=== PATIENT | female | born 1975 | race Caucasian/White ===

== ENCOUNTER 2016-04-24 10:47 | Emergency (ER) | payer OTHER ==
--- NOTE | 2016-04-24 15:25 | DIAGNOSTIC IMAGING REPORT ---
PROCEDURE: CT ABDOMEN/PELVIS W/O CONTRAST INDICATION: Left flank pain. History of kidney stones. Prior appendectomy, cholecystectomy, and hysterectomy. TECHNIQUE: Noncontrast axial images with sagittal and coronal reformations. COMPARISON: None. FINDINGS: ABDOMEN: Kidneys and ureters are normal. No evidence of urinary tract calculus or obstruction. Status post cholecystectomy and anatomy (surgical clips and mesh). Liver, spleen, pancreas, and aorta are normal. Bowel pattern is normal. PELVIS: Status post hysterectomy. Adnexal structures are normal. No evidence of free fluid. IMPRESSION: 1. Normal kidneys and ureters. No evidence of urinary tract obstruction or calculus. 2. Status post cholecystectomy, hysterectomy, appendectomy. 3. Findings discussed with Dr. Leroy Ray. All CT scans at this facility use dose modulation, iterative reconstruction, and/or weight-based dosing when appropriate to reduce radiation dose to as low as reasonably achievable.
--- NOTE | 2016-04-24 15:36 | ED ORDER SUMMARY ---
..... Patient: LIAN ROBERTO OrderSheet [facility] VisitID: [id number] [place] [address] 40y, F Registration Date/Time: 04/24/2016 ORDER SHEET Weight: 93.4 kg (stated) Allergies: No Known Drug Allergy GENERAL ORDERS: UA-Culture if indicated Urgent (10:58 04/24/2016 HOShaflavia R.N. per protocol) (Ack 11:12 LTapper) (12:07 LTapper) Urine Urgent (10:58 04/24/2016 HOShaflavia R.N. per protocol) (Ack 11:12 LTapper) (12:07 LTapper) CT Abd/Pel wo Cont Urgent (13:20 04/24/2016 Ira Liz) (Ack 13:34 LTapper) (15:47 HOShaflavia R.N.) MEDICATION ORDERS: Zofran ODT PO 4 mg (NOW) (11:50 04/24/2016 Ira Liz) (Ack 11:54 MWinterer R.N.) (11:55 MWinterer R.N.) IV FLUIDS: ORDER SHEET NOTES: [Electronically signed by Dat Rivera R.N. (15:47 04/24/2016)] [Electronically signed by Leroy Ray Dr. (22:19 04/24/2016)] [Electronically locked/signed by Dat Rivera R.N. (15:47 04/24/2016)]
--- NOTE | 2016-04-24 15:36 | ED ORDER SUMMARY ---
..... Patient: LIAN ROBERTO OrderSheet [facility] VisitID: [id number] [place] [address] 40y, F Registration Date/Time: 04/24/2016 ORDER SHEET Weight: 93.4 kg (stated) Allergies: No Known Drug Allergy GENERAL ORDERS: UA-Culture if indicated Urgent (10:58 04/24/2016 HOShaflavia R.N. per protocol) (Ack 11:12 LTapper) (12:07 LTapper) Urine Urgent (10:58 04/24/2016 HOShaflavia R.N. per protocol) (Ack 11:12 LTapper) (12:07 LTapper) CT Abd/Pel wo Cont Urgent (13:20 04/24/2016 Ira Liz) (Ack 13:34 LTapper) (15:47 HOShaflavia R.N.) MEDICATION ORDERS: Zofran ODT PO 4 mg (NOW) (11:50 04/24/2016 Ira Liz) (Ack 11:54 MWinterer R.N.) (11:55 MWinterer R.N.) IV FLUIDS: ORDER SHEET NOTES: [Electronically signed by Dat Rivera R.N. (15:47 04/24/2016)] [Electronically signed by Leroy Ray Dr. (22:19 04/24/2016)] [Electronically locked/signed by Dat Rivera R.N. (15:47 04/24/2016)]
--- NOTE | 2016-04-24 15:36 | ED CLINICAL REPORT ---
Clinical Report - Physicians/Mid Levels [facility] [address] [place] [address] 04/24/2016 10:50 Patient: LIAN ROBERTO Time Seen: 11:08; initial patient contact. Arrived- By private vehicle. Historian- patient. HISTORY OF PRESENT ILLNESS Chief Complaint: FLANK PAIN. At its maximum, severity described as moderate. When seen in the E.D., severity described as moderate. Modifying factors. Not worsened by anything. Not relieved by anything. It is described as sharp and cramping and it is described as located in the pelvic area and in the left pelvis and left side of the back and radiating to the left groin. This started yesterday and is still present. It was gradual in onset. No nausea, loss of appetite, vomiting or diarrhea. Similar symptoms previously: Several times. Recent medical care: Not recently seen/assessed. REVIEW OF SYSTEMS No constipation, difficulty with urination, pain with urination, urinary frequency or fever. No chills. All systems otherwise negative, except as recorded above. PAST HISTORY Nephrolithiasis. Kidney Infection. UTI - Urinary Tract Infection. Lupus. ADDITIONAL SURGERIES: Appendectomy. Cholecystectomy. Hysterectomy. Lumpectomy of breast. SOCIAL HISTORY Never smoker. No alcohol use or drug use. ADDITIONAL NOTES The nursing notes have been reviewed with agreement regarding the chief complaint, PMH and patient medications and allergies. PHYSICAL EXAM Vital Signs: 04/24/2016 11:03 BP: 129/81. HR: 75. RR: 16. O2 saturation: 98%. Temp: 98.1 F. Pain level now: 6/10. Have been reviewed as normal. Appearance: Alert. Oriented X3. No acute distress. Eyes: Eyes normal inspection. ENT: Pharynx normal. CVS: Normal heart rate and rhythm. Heart sounds normal. Respiratory: No respiratory distress. Breath sounds normal. Abdomen: Soft. Mild tenderness in the left side of the abdomen. No guarding or rebound tenderness. Bowel sounds normal. No organomegaly. No mass. Back: Mild tenderness in the left mid and lower lumbar area. Mild muscle spasm in the left mid and lower lumbar spine region. No CVA tenderness. Skin: Skin warm and dry. Normal skin color. No rash. Neuro: Oriented X 3. No motor deficit. No sensory deficit. LABS, X-RAYS, AND EKG CT Abdomen - Pelvis: 1. Normal kidneys and ureters. No evidence of urinary tract obstruction or calculus. 2. Status post cholecystectomy, hysterectomy, appendectomy. Abdomen - pelvic CT performed without contrast. Prior studies were not available for comparison. The study was interpreted by the radiologist and discussed with the radiologist. Interpretation time: 15:30. Laboratory Tests: UA-Culture if indicated: (ANNE MARIE: 04/24/2016 10:58) ( MsgRcvd 04/24/2016 11:19) Final results Test Result Flag Units (Reference) URINE COLOR YELLOW URINE APPEARANCE CLEAR URINE GLUCOSE NEGATIVE (NEGATIVE) URINE BILIRUBIN NEGATIVE (NEGATIVE) URINE KETONE NEGATIVE (NEGATIVE) URINE SPECIFIC GRAVITY 1.015 (1.010-1.030) URINE PH 7.0 (5.0-8.0) URINE PROTEIN NEGATIVE (NEGATIVE) URINE UROBILINOGEN 0.2 EU/dL (0.2-1.0) URINE NITRITE NEGATIVE (NEGATIVE) URINE BLOOD NEGATIVE (NEGATIVE) URINE LEUK ESTERASE NEGATIVE (NEGATIVE) URINE RBC RARE rbc/hpf (0-1) URINE WBC RARE wbc/hpf (0-1) URINE EPITHELIAL CELLS 10-15 EPI/hpf (0-5) URINE BACTERIA TRACE (<1+) (NONE SEEN) URINE COMMENT CULT NOT INDICATED URINE CULTURES ARE SET-UP BASED ON THE FOLLOWING CRITERIA:POSITIVE NITRITEPOSITIVE LEUKOCYTE ESTERASEGREATER THAN 10 WHITE BLOOD CELLSMODERATE (2+) OR GREATER BACTERIA Urine: (ANNE MARIE: 04/24/2016 10:58) ( MsgRcvd 04/24/2016 11:11) Final results Test Result Flag Units (Reference) URINE NEGATIVE . PROGRESS AND PROCEDURES Disposition: Discharged home in good and improved condition. Condition: good. CLINICAL IMPRESSION Acute left lower quadrant abdominal pain of undetermined cause. 04/24/2016 13:02 BP: 117/77. HR: 84. RR: 16. O2 saturation: 98%. Vital Signs: have been reviewed as normal. INSTRUCTIONS Your Current Medications: CONTINUE TAKING THE FOLLOWING MEDICATIONS: Hydrocortisone External. Prescription Medications: Hydrocodone/APAP 5mg / 325mg: take 1 orally every 6 hours as needed for pain. Dispense fifteen (15). No refill. Zofran ODT 4 mg: take 1 orally every 6 hours as needed for nausea and vomiting. Dispense ten (10). No refill. Substitution is permissible. Follow-up: Follow up with your doctor in about two days. Call for an appointment. Screening today revealed the patient's blood pressure to be in the normal range. (Electronically signed by Leroy Ray Dr. 04/24/2016 22:19)
--- NOTE | 2016-04-24 15:36 | ED NURSING NOTES ---
Clinical Report - Nurses [facility] [place] [address] 04/24/2016 10:50 Patient: LIAN ROBERTO TRIAGE Triage time 1103 AM. Acuity: LEVEL 4. Chief Complaint: PAINFUL URINATION and LOW BACK PAIN and LEFT-SIDED FLANK PAIN. Alert. No acute distress. --11:08 Dat Rivera R.N. 11:03 04/24/16. BP: 129/81. HR: 75. RR: 16. O2 saturation: 98%. Temp: 98.1 F. Pain level now: 09/30. --11:08 Dat Rivera R.N. Weight: 93.4 kg stated. Height/Length: 64 inches Per Patient. BMI: 35.4. --11:03 Dat Rivera R.N. Medications Hydrocortisone External. --11:06 Dat Rivera R.N. Allergies No Known Drug Allergy. --11:06 Dat Rivera R.N. History Arrived by private vehicle. Historian: patient. Accompanied by family. This started yesterday. ( Patient presents to the ED with symptoms of left flank pain, urinary frequency, and pain with urination. Patient states that she has a history of kidney stones and urinary tract infections. Patient states that she has had fevers lately, but was recently diagnosed with lupus and has not felt sick lately.). She has had fever, hematuria and flank pain. 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 PAST MEDICAL HX: Denies current : hysterectomy. SOCIAL HX: Never smoker. Alcohol use. (never). History of drug use. (never). FALL RISK ASSESSMENT: Fall risk assessment completed. No fall risk identified. NUTRITIONAL RISK ASSESSMENT: The nutritional risk assessment revealed no deficiencies. FUNCTIONAL ASSESSMENT: Functional assessment: no impairments noted. LEARNING NEEDS ASSESSMENT: The learning needs assessment revealed no barriers. SKIN INTEGRITY ASSESSMENT: Skin integrity risk assessment completed. No skin integrity risk identified. --11:08 Dat Rivera R.N. PROBLEMS: Nephrolithiasis. Kidney Infection. UTI - Urinary Tract Infection. Lupus. --11:07 Dat Rivera R.N. ADDITIONAL SURGERIES: Appendectomy. Cholecystectomy. Hysterectomy. Lumpectomy of breast. --11:07 Dat Rivera R.N. Interventions ID band on patient. --11:08 Dat Rivera R.N. PHYSICAL ASSESSMENT Ambulatory to room. GENERAL / NEURO / PSYCH: Alert. Oriented X 4. Appears in no acute distress. HEENT: Mucous membranes are pink. RESPIRATORY: Respirations not labored. Breath sounds within normal limits. CVS: Normal heart rate and rhythm. Capillary refill less than 2 seconds. GI / : Abdomen soft and nontender. Bowel sounds within normal limits. Pain with urination. She has had frequency of urination. Urgency of urination. CVA tenderness on the left (radiates to the front). No vaginal bleeding. No vaginal discharge. No genital lesions noted. SKIN: Skin is warm and dry. --11:09 Dat Rivera R.N. NURSING PROGRESS NOTES The initial plan of care for this patient includes an assessment with efforts to address impairment of the genitourinary system. This plan of care was discussed with the patient. Call light placed in reach. Side rails up x 1. Bed placed in lowest position. Brakes of bed on. --11:09 Dat Rivera R.N. 11:55 04/24/2016 Zofran ODT (Ondansetron) PO 4 mg given. Allergies verified and confirmed 5 rights. --11:55 Lian Quesada R.N. Call light placed in reach. Patient ready for evaluation- chart flagged and ED physician notified. --13:02 Dat Rivera R.N. 13:02 04/24/16. BP: 117/77. HR: 84. RR: 16. O2 saturation: 98%. Pain level now 6/10. --13:02 Dat Rivera R.N. Patient waiting for evaluation and CT results. --13:21 Dat Rivera R.N. Patient transported to CT by stretcher with tech. (1255 PM). --13:32 Dat Rievra R.N. Patient returned by stretcher with tech. ([id number]). --13:41 Dat Rivera R.N. DISPOSITION / DISCHARGE Condition at departure: unchanged. The goals identified in the patient's plan of care were met. No learning barriers present. Discharge instructions provided and reviewed with the patient. Reviewed medication(s) side effects, precautions, dosing and course information. Prescription(s) given to the patient. Reviewed referral to a primary care physician. Patient verbalized understanding. Written instructions provided in [place]. The patient was discharged home and accompanied by spouse. She left the Emergency Department ambulatory and via private vehicle. Spouse driving. FALL RISK ASSESSMENT: Fall risk assessment completed. No fall risk identified. --15:46 Dat Rivera R.N. 15:45 04/24/16. BP: 111/71. HR: 58. RR: 18. O2 saturation: 99%. Temp: 98.2 F (oral). Pain level now: 07/31. --15:46 Dat Rivera R.N. Departure time: 1546 PM. --15:46 Dat Rivera R.N. Locked/Released at 04/24/2016 15:47 by Dat Rivera R.N.
--- NOTE | 2016-04-24 15:36 | ED NURSING NOTES ---
Clinical Report - Nurses [facility] [place] [address] 04/24/2016 10:50 Patient: LIAN ROBERTO TRIAGE Triage time 1103 AM. Acuity: LEVEL 4. Chief Complaint: PAINFUL URINATION and LOW BACK PAIN and LEFT-SIDED FLANK PAIN. Alert. No acute distress. --11:08 Dat Rivera R.N. 11:03 04/24/16. BP: 129/81. HR: 75. RR: 16. O2 saturation: 98%. Temp: 98.1 F. Pain level now: 09/30. --11:08 Dat Rivera R.N. Weight: 93.4 kg stated. Height/Length: 64 inches Per Patient. BMI: 35.4. --11:03 Dat Rivera R.N. Medications Hydrocortisone External. --11:06 Dat Rivera R.N. Allergies No Known Drug Allergy. --11:06 Dat Rivera R.N. History Arrived by private vehicle. Historian: patient. Accompanied by family. This started yesterday. ( Patient presents to the ED with symptoms of left flank pain, urinary frequency, and pain with urination. Patient states that she has a history of kidney stones and urinary tract infections. Patient states that she has had fevers lately, but was recently diagnosed with lupus and has not felt sick lately.). She has had fever, hematuria and flank pain. 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 PAST MEDICAL HX: Denies current : hysterectomy. SOCIAL HX: Never smoker. Alcohol use. (never). History of drug use. (never). FALL RISK ASSESSMENT: Fall risk assessment completed. No fall risk identified. NUTRITIONAL RISK ASSESSMENT: The nutritional risk assessment revealed no deficiencies. FUNCTIONAL ASSESSMENT: Functional assessment: no impairments noted. LEARNING NEEDS ASSESSMENT: The learning needs assessment revealed no barriers. SKIN INTEGRITY ASSESSMENT: Skin integrity risk assessment completed. No skin integrity risk identified. --11:08 Dat Rivera R.N. PROBLEMS: Nephrolithiasis. Kidney Infection. UTI - Urinary Tract Infection. Lupus. --11:07 Dat Rivera R.N. ADDITIONAL SURGERIES: Appendectomy. Cholecystectomy. Hysterectomy. Lumpectomy of breast. --11:07 Dat Rivera R.N. Interventions ID band on patient. --11:08 Dat Rivera R.N. PHYSICAL ASSESSMENT Ambulatory to room. GENERAL / NEURO / PSYCH: Alert. Oriented X 4. Appears in no acute distress. HEENT: Mucous membranes are pink. RESPIRATORY: Respirations not labored. Breath sounds within normal limits. CVS: Normal heart rate and rhythm. Capillary refill less than 2 seconds. GI / : Abdomen soft and nontender. Bowel sounds within normal limits. Pain with urination. She has had frequency of urination. Urgency of urination. CVA tenderness on the left (radiates to the front). No vaginal bleeding. No vaginal discharge. No genital lesions noted. SKIN: Skin is warm and dry. --11:09 Dat Rivera R.N. NURSING PROGRESS NOTES The initial plan of care for this patient includes an assessment with efforts to address impairment of the genitourinary system. This plan of care was discussed with the patient. Call light placed in reach. Side rails up x 1. Bed placed in lowest position. Brakes of bed on. --11:09 Dat Rivera R.N. 11:55 04/24/2016 Zofran ODT (Ondansetron) PO 4 mg given. Allergies verified and confirmed 5 rights. --11:55 Lian Quesada R.N. Call light placed in reach. Patient ready for evaluation- chart flagged and ED physician notified. --13:02 Dat Rivera R.N. 13:02 04/24/16. BP: 117/77. HR: 84. RR: 16. O2 saturation: 98%. Pain level now 6/10. --13:02 Dat Rivera R.N. Patient waiting for evaluation and CT results. --13:21 Dat Rivera R.N. Patient transported to CT by stretcher with tech. (1255 PM). --13:32 Dat Rivera R.N. Patient returned by stretcher with tech. ([id number]). --13:41 Dat Rivera R.N. DISPOSITION / DISCHARGE Condition at departure: unchanged. The goals identified in the patient's plan of care were met. No learning barriers present. Discharge instructions provided and reviewed with the patient. Reviewed medication(s) side effects, precautions, dosing and course information. Prescription(s) given to the patient. Reviewed referral to a primary care physician. Patient verbalized understanding. Written instructions provided in Bhutanese. The patient was discharged home and accompanied by spouse. She left the Emergency Department ambulatory and via private vehicle. Spouse driving. FALL RISK ASSESSMENT: Fall risk assessment completed. No fall risk identified. --15:46 Dat Rivera R.N. 15:45 04/24/16. BP: 111/71. HR: 58. RR: 18. O2 saturation: 99%. Temp: 98.2 F (oral). Pain level now: 07/31. --15:46 Dat Rivera R.N. Departure time: 1546 PM. --15:46 Dat Rivera R.N. Locked/Released at 04/24/2016 15:47 by Dat Rivera R.N.
--- NOTE | 2016-04-24 22:20 | ED DISCHARGE INSTRUCTIONS ---
Patient: LIAN ROBERTO General Instructions Located Within [facility] VisitID: [id number] [place] [address] 40y, F Registration Date/Time: 04/24/2016 Acute left lower quadrant abdominal pain of undetermined cause. 04/24/2016 13:02 BP: 117/77. HR: 84. RR: 16. O2 saturation: 98%. Vital Signs: have been reviewed as normal. INSTRUCTIONS Your Current Medications: CONTINUE TAKING THE FOLLOWING MEDICATIONS: Hydrocortisone External. Prescription Medications: Hydrocodone/APAP 5mg / 325mg: take 1 orally every 6 hours as needed for pain. Dispense fifteen (15). No refill. Zofran ODT 4 mg: take 1 orally every 6 hours as needed for nausea and vomiting. Dispense ten (10). No refill. Substitution is permissible. Follow-up: Follow up with your doctor in about two days. Call for an appointment. Screening today revealed the patient's blood pressure to be in the normal range. ADDITIONAL INFORMATION Abdominal Pain, Unknown Cause (Female) The exact cause of your abdominal (stomach) pain is not certain. This does not mean that this is something to worry about, or the right tests were not done. Everyone likes to know the exact cause of the problem, but sometimes with abdominal pain, there is no clear-cut cause, and this could be a good thing. The good news is that your symptoms can be treated, and you will feel better. Your condition does not seem serious now; however, sometimes the signs of a serious problem may take more time to appear. For this reason,it is important for you to watch for any new symptoms, problems,or worsening of your condition. Over the next few days, the abdominal pain may come and go, or be continuous. Other common symptoms can include nausea and vomiting. Sometimes it can be difficult to tell if you feel nauseous, you may just feel bad and not associate that feeling with nausea. Constipation, diarrhea, and a fever may go along with the pain. The pain may continue even if treated correctly over the following days. Depending on how things go, sometimes the cause can become clear and may require further or different treatment. Additional evaluations, medications, or tests may be needed. Home care Your health care provider may prescribe medications for pain, symptoms, or an infection. Follow the health care provider's instructions for taking these medications. General care Rest until your next exam. No strenuous activities. Try to find positions that ease discomfort. A small pillow placed on the abdomen may help relieve pain. Something warm on your abdomen (such as a heating pad) may help, but be careful not to burn yourself. Diet Do not force yourself to eat, especially if having cramps, vomiting, or diarrhea. Water is important so you do not get dehydrated. Soup may also be good. Sports drinks may also help, especially if they are not too acidic. Make sure you don't drink sugary drinks as this can make things worse. Take liquids in small amounts. Do not guzzle them. Caffeine sometimes makes the pain and cramping worse. Avoid dairy products if you have vomiting or diarrhea. Don't eat large amounts at a time. Wait a few minutes between bites. Eat a diet low in fiber (called a low-residue diet). Foods allowed include refined breads, white rice, fruit and vegetable juices without pulp, tender meats. These foods will pass more easily through the intestine. Avoid whole-grain foods, whole fruits and vegetables, meats, seeds and nuts, fried or fatty foods, dairy, alcohol and spicy foods until your symptoms go away. Follow-up care Follow up with your health care provider as instructed, or if your pain does not begin to improve in the next 24 hours. When to seek medical care Seek prompt medical care if any of the following occur: Pain gets worse or moves to the right lower abdomen New or worsening vomiting or diarrhea Swelling of the abdomen Unable to pass stool for more than three days Fever of 100.4F (38C) or higher, or as directed by your healthcare provider. Blood in vomit or bowel movements (dark red or black color) Jaundice (yellow color of eyes and skin) Weakness, dizziness Chest, arm, back, neck or jaw pain Unexpected vaginal bleeding or missed period Call 911 Call emergency services if any of the following occur: Trouble breathing Confusion Fainting or loss of consciousness Rapid heart rate Seizure Hydrocodone Bitartrate, Acetaminophen Oral tablet What is this medicine? ACETAMINOPHEN; HYDROCODONE (a set a BERTA yarely fen; tone droe KOE done) is a pain reliever. It is used to treat mild to moderate pain. How should I use this medicine? Take this medicine by mouth. Swallow it with a full glass of water. Follow the directions on the prescription label. If the medicine upsets your stomach, take the medicine with food or milk. Do not take more than you are told to take. Talk to your linux engineer regarding the use of this medicine in children. This medicine is not approved for use in children. What side effects may I notice from receiving this medicine? Side effects that you should report to your doctor or health home visit field care manager as soon as possible: allergic reactions like skin rash, itching or hives, swelling of the face, lips, or tongue breathing problems confusion feeling faint or lightheaded, falls stomach pain yellowing of the eyes or skin Side effects that usually do not require medical attention (report to your doctor or health home visit field care manager if they continue or are bothersome): nausea, vomiting stomach upset What may interact with this medicine? alcohol antihistamines isoniazid medicines for depression, anxiety, or psychotic disturbances medicines for sleep muscle relaxants naltrexone narcotic medicines (opiates) for pain phenobarbital ritonavir tramadol What if I miss a dose? If you miss a dose, take it as soon as you can. If it is almost time for your next dose, take only that dose. Do not take double or extra doses. Where should I keep my medicine? Keep out of the reach of children. This medicine can be abused. Keep your medicine in a safe place to protect it from theft. Do not share this medicine with anyone. Selling or giving away this medicine is dangerous and against the law. Store at room temperature between 15 and 30 degrees C (59 and 86 degrees F). Protect from light. Keep container tightly closed. Throw away any unused medicine after the expiration date. Discard unused medicine and used packaging carefully. Pets and children can be harmed if they find used or lost packages. What should I tell my health care provider before I take this medicine? They need to know if you have any of these conditions: brain tumor Crohn's disease, inflammatory bowel disease, or ulcerative colitis drink more than 3 alcohol-containing drinks per day drug abuse or addiction head injury heart or circulation problems kidney disease or problems going to the bathroom liver disease lung disease, asthma, or breathing problems an unusual or allergic reaction to acetaminophen, hydrocodone, other opioid analgesics, other medicines, foods, dyes, or preservatives or trying to get breast-feeding What should I watch for while using this medicine? Tell your doctor or health home visit field care manager if your pain does not go away, if it gets worse, or if you have new or a different type of pain. You may develop tolerance to the medicine. Tolerance means that you will need a higher dose of the medicine for pain relief. Tolerance is normal and is expected if you take the medicine for a long time. Do not suddenly stop taking your medicine because you may develop a severe reaction. Your body becomes used to the medicine. This does NOT mean you are addicted. Addiction is a behavior related to getting and using a drug for a non-medical reason. If you have pain, you have a medical reason to take pain medicine. Your doctor will tell you how much medicine to take. If your doctor wants you to stop the medicine, the dose will be slowly lowered over time to avoid any side effects. You may get drowsy or dizzy when you first start taking the medicine or change doses. Do not drive, use machinery, or do anything that may be dangerous until you know how the medicine affects you. Stand or sit up slowly. There are different types of narcotic medicines (opiates) for pain. If you take more than one type at the same time, you may have more side effects. Give your health care provider a list of all medicines you use. Your doctor will tell you how much medicine to take. Do not take more medicine than directed. Call emergency for help if you have problems breathing. The medicine will cause constipation. Try to have a bowel movement at least every 2 to 3 days. If you do not have a bowel movement for 3 days, call your doctor or health home visit field care manager. Too much acetaminophen can be very dangerous. Do not take Tylenol (acetaminophen) or medicines that contain acetaminophen with this medicine. Many non-prescription medicines contain acetaminophen. Always read the labels carefully. Ondansetron Oral disintegrating tablet What is this medicine? ONDANSETRON (on CHELSIE se flaca) is used to treat nausea and vomiting caused by chemotherapy. It is also used to prevent or treat nausea and vomiting after surgery. How should I use this medicine? These tablets are made to dissolve in the mouth. Do not try to push the tablet through the foil backing. With dry hands, peel away the foil backing and gently remove the tablet. Place the tablet in the mouth and allow it to dissolve, then swallow. While you may take these tablets with water, it is not necessary to do so. Talk to your linux engineer regarding the use of this medicine in children. Special care may be needed. What side effects may I notice from receiving this medicine? Side effects that you should report to your doctor or health home visit field care manager as soon as possible: allergic reactions like skin rash, itching or hives, swelling of the face, lips, or tongue breathing problems dizziness fast or irregular heartbeat feeling faint or lightheaded, falls fever and chills swelling of the hands and feet tightness in the chest Side effects that usually do not require medical attention (report to your doctor or health home visit field care manager if they continue or are bothersome): constipation or diarrhea headache What may interact with this medicine? Do not take this medicine with any of the following medications: -apomorphine -cisapride -dofetilide -dronedarone -pimozide -thioridazine -ziprasidone This medicine may also interact with the following medications: -carbamazepine -phenytoin -rifampicin -tramadol -other medicines that prolong the QT interval (cause an abnormal heart rhythm) What if I miss a dose? If you miss a dose, take it as soon as you can. If it is almost time for your next dose, take only that dose. Do not take double or extra doses. Where should I keep my medicine? Keep out of the reach of children. Store between 2 and 30 degrees C (36 and 86 degrees F). Throw away any unused medicine after the expiration date. What should I tell my health care provider before I take this medicine? They need to know if you have any of these conditions: heart disease history of irregular heartbeat liver disease low levels of magnesium or potassium in the blood an unusual or allergic reaction to ondansetron, granisetron, other medicines, foods, dyes, or preservatives or trying to get breast-feeding What should I watch for while using this medicine? Check with your doctor or health home visit field care manager as soon as you can if you have any sign of an allergic reaction. You have been given the following additional information: Abdominal Pain, Unknown Cause, (Female) Hydrocodone Bitartrate, Acetaminophen Oral tablet Ondansetron Oral disintegrating tablet (Electronically signed by Leroy Ray Dr. 04/24/2016 22:19)
--- NOTE | 2016-04-24 22:20 | ED MAR SUMMARY ---
..... Medication Administration Record [facility] [address] [place] [address] Patient: LIAN ROBERTO Visit ID: [id number] 40y, F Weight: 93.4 kg Height/Length: 64 in BMI: 35.4 ALLERGIES: No Known Drug Allergy Given 11:55 04/24/2016 Lian Quesada R.N. Medication Administered: ZOFRAN ODT [PO] (ONDANSETRON), Dose: 4 mg PO. Medication Ordered: Zofran ODT PO 4 mg (NOW).
--- NOTE | 2016-04-24 22:20 | ED MED RECONCILIATION SUMMARY ---
Patient: LIAN ROBERTO Medication Reconciliation Report [facility] VisitID: [id number] [address] [place] [address] 40y, F Registration Date/Time: 04/24/2016 Weight: 93.4 kg Height/Length: 64 in. BMI: 35.4 ALLERGIES: No Known Drug Allergy The patient's Home Medications are listed below: CONTINUE TAKING THE FOLLOWING MEDICATIONS: Hydrocortisone External The source(s) of the original Home Medication information: Not obtained. The following Medications were given to the patient in the Emergency Department: Zofran ODT [PO] PO 4 mg, administered: 04/24/2016 11:55:00 AM The following Medications were prescribed to the patient: Hydrocodone/APAP 5mg / 325mg: take 1 orally every 6 hours as needed for pain. Dispense fifteen (15). No refill. -- Leroy Ray Dr. Zofrderek ODT 4 mg: take 1 orally every 6 hours as needed for nausea and vomiting. Dispense ten (10). No refill. Substitution is permissible. -- Leroy Ray Dr.
--- NOTE | 2016-04-24 22:20 | ED MAR SUMMARY ---
..... Medication Administration Record [facility] [address] [place] [address] Patient: LIAN ROBERTO Visit ID: [id number] 40y, F Weight: 93.4 kg Height/Length: 64 in BMI: 35.4 ALLERGIES: No Known Drug Allergy Given 11:55 04/24/2016 Lian Quesada R.N. Medication Administered: ZOFRAN ODT [PO] (ONDANSETRON), Dose: 4 mg PO. Medication Ordered: Zofran ODT PO 4 mg (NOW).
--- NOTE | 2016-04-24 22:20 | ED MED RECONCILIATION SUMMARY ---
Patient: LIAN ROBERTO Medication Reconciliation Report [facility] VisitID: [id number] [address] [place] [address] 40y, F Registration Date/Time: 04/24/2016 Weight: 93.4 kg Height/Length: 64 in. BMI: 35.4 ALLERGIES: No Known Drug Allergy The patient's Home Medications are listed below: CONTINUE TAKING THE FOLLOWING MEDICATIONS: Hydrocortisone External The source(s) of the original Home Medication information: Not obtained. The following Medications were given to the patient in the Emergency Department: Zofran ODT [PO] PO 4 mg, administered: 04/24/2016 11:55:00 AM The following Medications were prescribed to the patient: Hydrocodone/APAP 5mg / 325mg: take 1 orally every 6 hours as needed for pain. Dispense fifteen (15). No refill. -- Leroy Ray Dr. Zofrderek ODT 4 mg: take 1 orally every 6 hours as needed for nausea and vomiting. Dispense ten (10). No refill. Substitution is permissible. -- Leroy Ray Dr.
== END 2016-04-24 15:48 | disposition home or self-care (01) ==
LOC: ED SRH 10:47
DX: R10.32 Left lower quadrant pain (principal); Z79.891 Long term (current) use of opiate analgesic; Z87.442 Personal history of urinary calculi; Z87.440 Personal history of urinary (tract) infections; Z98.890 Other specified postprocedural states
CPT/HCPCS: 90004; 93070

== ENCOUNTER 2016-06-13 11:58 | Emergency (ER) | payer OTHER ==
--- NOTE | 2016-06-13 15:05 | ED ORDER SUMMARY ---
..... Patient: LIAN ROBERTO OrderSheet [facility] VisitID: [id number] [address] [place] [address] 40y, F Registration Date/Time: 06/13/2016 ORDER SHEET Weight: 93.4 kg (stated) Allergies: Shrimp GENERAL ORDERS: LP Tray (PERERMISSION FOR LP FORM. EXTRA 3.3 IN SPINAL NEEDLE 1% LIDO PLAIN LOCAL) (13:59 06/13/2016 Dafne WERNER) (Ack 14:04 Joe) (Cancelled: Physician Order15:13 Danelle R.N.) MEDICATION ORDERS: Percocet PO 5/325 mg 1 tablet (HIGH ALERT MEDICATION) (14:17 06/13/2016 Dafne WERNER) (Ack 14:22 JBoarletty R.N.) (14:25 Lee Ann R.N.) IV FLUIDS: ORDER SHEET NOTES: [Electronically signed by Jenni Lala R.N. (15:44 06/13/2016)] [Electronically signed by Patrick Leblanc MD (00:02 06/15/2016)] [Electronically locked/signed by Jenni Lala R.N. (15:44 06/13/2016)]
--- NOTE | 2016-06-13 15:05 | ED NURSING NOTES ---
Clinical Report - Nurses [facility] [address] [place] [address] 06/13/2016 11:59 Patient: LIAN ROBERTO TRIAGE Triage time 12:21. Acuity: LEVEL 3. Alert. No acute distress. SEPSIS SCREEN: Sepsis Screen. Negative (no infection suspected/documented). CHIQUIS COMA SCORE: [place] Coma Scale: 15- eyes open spontaneously (4); best verbal response- oriented x 4 (5); best motor response- obeys commands (6). --12:26 Jane Saldaña R.N. 12:23 06/13/16. BP: 128/81. HR: 76. RR: 19. O2 saturation: 100%. Temp: 98.2 F. Pain level now 7/10. --12:26 Jane Saldaña R.N. Chief Complaint: HEADACHE. --15:16 Jenni Lala R.N. Weight: 93.4 kg stated. Height/Length: 64 inches Per Patient. BMI: 35.4. --12:24 Jane Saldaña R.N. Medications None. --12:25 Jane Saldaña R.N. Medication/allergy information source: the patient. --12:26 Jane Saldaña R.N. Allergies Shrimp. --12:25 Jane Saldaña R.N. History Primary physician (JOSELINE). 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 Has been having a constant headache for the past 8 weeks. States nothing improves pain, pain is worsened by laying down. Has referral to optomologist.). 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 PAST MEDICAL HX: Has had a hysterectomy. Denies current . SOCIAL HX: Never smoker. No alcohol use or drug use. ABUSE ASSESSMENT: Abuse assessment: The patient was asked "Do you feel safe in your home?". No report of abuse. FALL RISK ASSESSMENT: Fall risk assessment completed. No fall risk identified. NUTRITIONAL RISK ASSESSMENT: The nutritional risk assessment revealed no deficiencies. FUNCTIONAL ASSESSMENT: Functional assessment: no impairments noted. LEARNING NEEDS ASSESSMENT: The learning needs assessment revealed no barriers. SKIN INTEGRITY ASSESSMENT: Skin integrity risk assessment completed. No skin integrity risk identified. --12:26 Jane Saldaña R.N. PROBLEMS: Abdominal Pain. Nephrolithiasis. Kidney Infection. UTI - Urinary Tract Infection. Lupus. --12:25 Jane Saldaña R.N. Optical hypertension. --12:27 Jane Saldaña R.N. ADDITIONAL SURGERIES: Appendectomy. Cholecystectomy. Hysterectomy. Lumpectomy of breast. --12:25 Jane Saldaña R.N. Interventions ID band on patient. To waiting room. --12:26 Jane Saldaña R.N. PHYSICAL ASSESSMENT 13:04 06/13/16. Ambulatory to room. GENERAL / NEURO / PSYCH: Alert. Oriented X 4. Appears in pain. Speech within normal limits. RESPIRATORY: Respirations not labored. CVS: Capillary refill less than 2 seconds. --13:04 Jessica Machuca R.N. 12:59 06/13/16. BP: 141/79. HR: 70. RR: 20. O2 saturation: 95%. Temp: 98.6 F. Pain level now: 7/10. Additional comments: Pt states she has had migraine headache for 8-9 weeks. She states she has experienced dizziness daily with the headache. . --13:04 Jessica Machuca R.N. NURSING PROGRESS NOTES 13:05 06/13/16. Patient gowned. Reassurance given. Lights dimmed. Call light placed in reach. Bed placed in lowest position. Brakes of bed on. Patient ready for evaluation- chart flagged and notification provided. --13:05 Jessica Machuca R.N. 14:25 06/13/2016 Percocet (Oxycodone-Acetaminophen) PO 5/325 mg Tablets 1 tab given. --14:25 Jessica Machuca R.N. 15:14. The patient is calm and resting quietly. Overall patient status is the same- she states feels the same. GENERAL / NEURO / PSYCH: Alert. Oriented X 4. RESPIRATORY: No respiratory distress. SKIN: Skin is warm and dry. --15:23 Jenni Lala R.N. DISPOSITION / DISCHARGE Departure time: 1513. Condition at departure: stable. No learning barriers present. Discharge instructions provided and reviewed with the patient. Reviewed medication(s). Prescription(s) given to the patient. Patient verbalized understanding. Written instructions provided in Monegasque. The patient was discharged home and accompanied by family. She left the Emergency Department ambulatory and via private vehicle. FALL RISK ASSESSMENT: Fall risk assessment completed. No fall risk identified. --15:21 Jenni Lala R.N. 15:19 06/13/16. BP: 124/77. HR: 62. RR: 16. O2 saturation: 96% on room air. Pain level now: 07/31. --15:21 Jenni Lala R.N. Locked/Released at 06/13/2016 15:44 by Jenni Lala R.N.
--- NOTE | 2016-06-13 15:05 | ED NURSING NOTES ---
Clinical Report - Nurses [facility] [address] [place] [address] 06/13/2016 11:59 Patient: LIAN ROBERTO TRIAGE Triage time 12:21. Acuity: LEVEL 3. Alert. No acute distress. SEPSIS SCREEN: Sepsis Screen. Negative (no infection suspected/documented). CHIQUIS COMA SCORE: [place] Coma Scale: 15- eyes open spontaneously (4); best verbal response- oriented x 4 (5); best motor response- obeys commands (6). --12:26 Jane Saldaña R.N. 12:23 06/13/16. BP: 128/81. HR: 76. RR: 19. O2 saturation: 100%. Temp: 98.2 F. Pain level now 7/10. --12:26 Jane Saldaña R.N. Chief Complaint: HEADACHE. --15:16 Jenni Lala R.N. Weight: 93.4 kg stated. Height/Length: 64 inches Per Patient. BMI: 35.4. --12:24 Jane Saldaña R.N. Medications None. --12:25 Jane Saldaña R.N. Medication/allergy information source: the patient. --12:26 Jane Saldaña R.N. Allergies Shrimp. --12:25 Jane Saldaña R.N. History Primary physician (JOSELINE). 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 Has been having a constant headache for the past 8 weeks. States nothing improves pain, pain is worsened by laying down. Has referral to optomologist.). 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 PAST MEDICAL HX: Has had a hysterectomy. Denies current . SOCIAL HX: Never smoker. No alcohol use or drug use. ABUSE ASSESSMENT: Abuse assessment: The patient was asked "Do you feel safe in your home?". No report of abuse. FALL RISK ASSESSMENT: Fall risk assessment completed. No fall risk identified. NUTRITIONAL RISK ASSESSMENT: The nutritional risk assessment revealed no deficiencies. FUNCTIONAL ASSESSMENT: Functional assessment: no impairments noted. LEARNING NEEDS ASSESSMENT: The learning needs assessment revealed no barriers. SKIN INTEGRITY ASSESSMENT: Skin integrity risk assessment completed. No skin integrity risk identified. --12:26 Jane Saldaña R.N. PROBLEMS: Abdominal Pain. Nephrolithiasis. Kidney Infection. UTI - Urinary Tract Infection. Lupus. --12:25 Jane Saldaña R.N. Optical hypertension. --12:27 Jane Saldaña R.N. ADDITIONAL SURGERIES: Appendectomy. Cholecystectomy. Hysterectomy. Lumpectomy of breast. --12:25 Jane Saldaña R.N. Interventions ID band on patient. To waiting room. --12:26 Jane Saldaña R.N. PHYSICAL ASSESSMENT 13:04 06/13/16. Ambulatory to room. GENERAL / NEURO / PSYCH: Alert. Oriented X 4. Appears in pain. Speech within normal limits. RESPIRATORY: Respirations not labored. CVS: Capillary refill less than 2 seconds. --13:04 Jessica Machuca R.N. 12:59 06/13/16. BP: 141/79. HR: 70. RR: 20. O2 saturation: 95%. Temp: 98.6 F. Pain level now: 7/10. Additional comments: Pt states she has had migraine headache for 8-9 weeks. She states she has experienced dizziness daily with the headache. . --13:04 Jessica Machuca R.N. NURSING PROGRESS NOTES 13:05 06/13/16. Patient gowned. Reassurance given. Lights dimmed. Call light placed in reach. Bed placed in lowest position. Brakes of bed on. Patient ready for evaluation- chart flagged and notification provided. --13:05 Jessica Machuca R.N. 14:25 06/13/2016 Percocet (Oxycodone-Acetaminophen) PO 5/325 mg Tablets 1 tab given. --14:25 Jessica Machuca R.N. 15:14. The patient is calm and resting quietly. Overall patient status is the same- she states feels the same. GENERAL / NEURO / PSYCH: Alert. Oriented X 4. RESPIRATORY: No respiratory distress. SKIN: Skin is warm and dry. --15:23 Jenni Lala R.N. DISPOSITION / DISCHARGE Departure time: 1513. Condition at departure: stable. No learning barriers present. Discharge instructions provided and reviewed with the patient. Reviewed medication(s). Prescription(s) given to the patient. Patient verbalized understanding. Written instructions provided in Faroese. The patient was discharged home and accompanied by family. She left the Emergency Department ambulatory and via private vehicle. FALL RISK ASSESSMENT: Fall risk assessment completed. No fall risk identified. --15:21 Jenni Lala R.N. 15:19 06/13/16. BP: 124/77. HR: 62. RR: 16. O2 saturation: 96% on room air. Pain level now: 07/31. --15:21 Jenni Lala R.N. Locked/Released at 06/13/2016 15:44 by Jenni Lala R.N.
--- NOTE | 2016-06-13 15:05 | ED ORDER SUMMARY ---
..... Patient: LIAN ROBERTO OrderSheet [facility] VisitID: [id number] [address] [place] [address] 40y, F Registration Date/Time: 06/13/2016 ORDER SHEET Weight: 93.4 kg (stated) Allergies: Shrimp GENERAL ORDERS: LP Tray (PERERMISSION FOR LP FORM. EXTRA 3.3 IN SPINAL NEEDLE 1% LIDO PLAIN LOCAL) (13:59 06/13/2016 Dafne WERNER) (Ack 14:04 Joe) (Cancelled: Physician Order15:13 Danelle R.N.) MEDICATION ORDERS: Percocet PO 5/325 mg 1 tablet (HIGH ALERT MEDICATION) (14:17 06/13/2016 Dafne WERNER) (Ack 14:22 JBoarletty R.N.) (14:25 Lee Ann R.N.) IV FLUIDS: ORDER SHEET NOTES: [Electronically signed by Jenni Lala R.N. (15:44 06/13/2016)] [Electronically signed by Patrick Leblanc MD (00:02 06/15/2016)] [Electronically locked/signed by Jenni Lala R.N. (15:44 06/13/2016)]
--- NOTE | 2016-06-13 15:05 | ED CLINICAL REPORT ---
Clinical Report - Physicians/Mid Levels [facility] [address] [place] [address] 06/13/2016 11:59 Patient: LIAN ROBERTO Time Seen: 13:24. Arrived- By private vehicle. Historian- patient. HISTORY OF PRESENT ILLNESS Is still present. Chief Complaint: HEADACHE. This started weeks ago but worse over the last several days.; Eyes feel like they are going to explode. It has been constant and waxing/waning. It is described as tightness and pressure. Quality described as unlike previous headaches. Located in the region of the right eye and left eye. At its maximum, severity described as severe. When seen in the E.D., severity described as severe. Modifying factors: (Better sitting up, Worse when supine.). No preceding symptoms, blurred vision, photophobia or numbness. Recent medical care: The patient was seen recently by a health care provider. ( MRI - IIHTN Recent Lupus diagnosis 4 years ago LP - Blood patch - MS test.). REVIEW OF SYSTEMS No fever, decreased vision, ear pain, sore throat or chest pain. No cough, difficulty breathing, abdominal pain, black stools or bloody stools. No laceration. She has had skin rash. PAST HISTORY PCP: JOSELINE LOU - Illness: Idiopathic Intracranial hypertension. SOCIAL HISTORY Never smoker. ADDITIONAL NOTES The nursing notes have been reviewed. PHYSICAL EXAM Vital Signs: 06/13/2016 15:19 BP: 124/77. HR: 62. RR: 16. O2 saturation: 96%. Pain level now: 07/31. 06/13/2016 12:59 BP: 141/79. HR: 70. RR: 20. O2 saturation: 95%. Temp: 98.6 F. Pain level now: 10/30. 06/13/2016 12:23 BP: 128/81. HR: 76. RR: 19. O2 saturation: 100%. Temp: 98.2 F. Appearance: Alert. No acute distress. Eyes: Pupils equal, round and reactive to light. Eyes normal inspection. (R fundus normal disk. L fundus fuzzy disk except normal from 3 to 6 o'clock in the disk.). ENT: Pharynx normal. Neck: Normal inspection. Neck supple. CVS: Heart sounds normal. Respiratory: No respiratory distress. Breath sounds normal. Abdomen: Soft and nontender. Skin: Skin warm. Normal skin color. No rash. Extremities: Extremities exhibit normal ROM. No lower extremity edema. Neuro: Oriented X 3. Alert. Mood/affect normal. Speech normal. Cranial nerves normal (as tested). No cerebellar findings. No motor deficit. No sensory deficit. Reflexes normal. Normal gait. PROGRESS AND PROCEDURES Course of Care: History, exacerbating and relieving factors history of MRI and exam are all CW Acute Intracranial Hypertension. Review of UTD monograph reveals that LP is not recommended since it only decreases ICP for 6 hours. It lists several other preferred interventions which will be done while the patient is waiting for her [facility] ophthalmology appointment. Pain is improved but not gone with ED interventions. Disposition: Condition: stable. CLINICAL IMPRESSION Headache. IDOPATHIC INTRACRANIAL HYPERTENSION. INSTRUCTIONS (CONTINUE TO LOOSE WEIGHT). Prescription Medications: Hydrocodone/APAP 5mg / 325mg: take 1-2 orally every 4 hours as needed for pain. Dispense twenty-five (25). No refill. Indocin SR 75 mg capsules: take 1 capsule for 14 days. Dispense thirty (30). Substitution is permissible. (1 PO DAILY) ACTETAZOLEMIDE 500 MG #30 1 PO BID. Follow-up: Follow up with your doctor in seven days. Reason for referral: FOLLOW UP OF INITIAL TREATMENT Understanding of the discharge instructions verbalized by patient and family. (Electronically signed by Patrick Leblanc MD 06/15/2016 0:02)
--- NOTE | 2016-06-15 00:03 | ED MED RECONCILIATION SUMMARY ---
Patient: LIAN ROBERTO Medication Reconciliation Report [facility] VisitID: [id number] [address] [place] [address] 40y, F Registration Date/Time: 06/13/2016 Weight: 93.4 kg Height/Length: 64 in. BMI: 35.4 ALLERGIES: Shrimp The patient's Home Medications are listed below: NONE. The source(s) of the original Home Medication information: patient The following Medications were given to the patient in the Emergency Department: Percocet [PO] PO 1 tab, administered: 06/13/2016 2:25:00 PM The following Medications were prescribed to the patient: Hydrocodone/APAP 5mg / 325mg: take 1-2 orally every 4 hours as needed for pain. Dispense twenty-five (25). No refill. -- Patrick Leblanc MD ACTETAZOLEMIDE 500 MG #30 1 PO BID. -- Patrick Leblanc MD Indocin SR 75 mg capsules: take 1 capsule for 14 days. Dispense thirty (30). Substitution is permissible.(1 PO DAILY) -- Patrick Leblanc MD
--- NOTE | 2016-06-15 00:03 | ED DISCHARGE INSTRUCTIONS ---
Patient: LIAN ROBERTO General Instructions [facility] VisitID: [id number] [address] [place] [address] 40y, F Registration Date/Time: 06/13/2016 Headache. IDOPATHIC INTRACRANIAL HYPERTENSION. INSTRUCTIONS (CONTINUE TO LOOSE WEIGHT). Prescription Medications: Hydrocodone/APAP 5mg / 325mg: take 1-2 orally every 4 hours as needed for pain. Dispense twenty-five (25). No refill. Indocin SR 75 mg capsules: take 1 capsule for 14 days. Dispense thirty (30). Substitution is permissible. (1 PO DAILY) ACTETAZOLEMIDE 500 MG #30 1 PO BID. Follow-up: Follow up with your doctor in seven days. Reason for referral: FOLLOW UP OF INITIAL TREATMENT Understanding of the discharge instructions verbalized by patient and family. ADDITIONAL INFORMATION Hydrocodone Bitartrate, Acetaminophen Oral tablet What is this medicine? ACETAMINOPHEN; HYDROCODONE (a set a BERTA yarely fen; tone droe KOE done) is a pain reliever. It is used to treat mild to moderate pain. How should I use this medicine? Take this medicine by mouth. Swallow it with a full glass of water. Follow the directions on the prescription label. If the medicine upsets your stomach, take the medicine with food or milk. Do not take more than you are told to take. Talk to your grain combine driver regarding the use of this medicine in children. This medicine is not approved for use in children. What side effects may I notice from receiving this medicine? Side effects that you should report to your doctor or health healthcare administrative assistant as soon as possible: allergic reactions like skin rash, itching or hives, swelling of the face, lips, or tongue breathing problems confusion feeling faint or lightheaded, falls stomach pain yellowing of the eyes or skin Side effects that usually do not require medical attention (report to your doctor or health healthcare administrative assistant if they continue or are bothersome): nausea, vomiting stomach upset What may interact with this medicine? alcohol antihistamines isoniazid medicines for depression, anxiety, or psychotic disturbances medicines for sleep muscle relaxants naltrexone narcotic medicines (opiates) for pain phenobarbital ritonavir tramadol What if I miss a dose? If you miss a dose, take it as soon as you can. If it is almost time for your next dose, take only that dose. Do not take double or extra doses. Where should I keep my medicine? Keep out of the reach of children. This medicine can be abused. Keep your medicine in a safe place to protect it from theft. Do not share this medicine with anyone. Selling or giving away this medicine is dangerous and against the law. Store at room temperature between 15 and 30 degrees C (59 and 86 degrees F). Protect from light. Keep container tightly closed. Throw away any unused medicine after the expiration date. Discard unused medicine and used packaging carefully. Pets and children can be harmed if they find used or lost packages. What should I tell my health care provider before I take this medicine? They need to know if you have any of these conditions: brain tumor Crohn's disease, inflammatory bowel disease, or ulcerative colitis drink more than 3 alcohol-containing drinks per day drug abuse or addiction head injury heart or circulation problems kidney disease or problems going to the bathroom liver disease lung disease, asthma, or breathing problems an unusual or allergic reaction to acetaminophen, hydrocodone, other opioid analgesics, other medicines, foods, dyes, or preservatives or trying to get breast-feeding What should I watch for while using this medicine? Tell your doctor or health healthcare administrative assistant if your pain does not go away, if it gets worse, or if you have new or a different type of pain. You may develop tolerance to the medicine. Tolerance means that you will need a higher dose of the medicine for pain relief. Tolerance is normal and is expected if you take the medicine for a long time. Do not suddenly stop taking your medicine because you may develop a severe reaction. Your body becomes used to the medicine. This does NOT mean you are addicted. Addiction is a behavior related to getting and using a drug for a non-medical reason. If you have pain, you have a medical reason to take pain medicine. Your doctor will tell you how much medicine to take. If your doctor wants you to stop the medicine, the dose will be slowly lowered over time to avoid any side effects. You may get drowsy or dizzy when you first start taking the medicine or change doses. Do not drive, use machinery, or do anything that may be dangerous until you know how the medicine affects you. Stand or sit up slowly. There are different types of narcotic medicines (opiates) for pain. If you take more than one type at the same time, you may have more side effects. Give your health care provider a list of all medicines you use. Your doctor will tell you how much medicine to take. Do not take more medicine than directed. Call emergency for help if you have problems breathing. The medicine will cause constipation. Try to have a bowel movement at least every 2 to 3 days. If you do not have a bowel movement for 3 days, call your doctor or health healthcare administrative assistant. Too much acetaminophen can be very dangerous. Do not take Tylenol (acetaminophen) or medicines that contain acetaminophen with this medicine. Many non-prescription medicines contain acetaminophen. Always read the labels carefully. Indomethacin Oral capsule What is this medicine? INDOMETHACIN (in marin METH a sin) is a non-steroidal anti-inflammatory drug (NSAID). It is used to reduce swelling and to treat pain. It may be used for painful joint and muscular problems such as arthritis, tendinitis, bursitis, and gout. How should I use this medicine? Take this medicine by mouth with food and with a full glass of water. Follow the directions on the prescription label. Take your medicine at regular intervals. Do not take your medicine more often than directed. Long-term, continuous use may increase the risk of heart attack or stroke. A special MedGuide will be given to you by the pharmacist with each prescription and refill. Be sure to read this information carefully each time. Talk to your grain combine driver regarding the use of this medicine in children. Special care may be needed. While this drug may be prescribed for children as young as 15 years for selected conditions, precautions do apply. Elderly patients over 65 years old may have a stronger reaction and need a smaller dose. What side effects may I notice from receiving this medicine? Side effects that you should report to your doctor or health healthcare administrative assistant as soon as possible: allergic reactions like skin rash, itching or hives, swelling of the face, lips, or tongue black or bloody stools, blood in the urine or vomit blurred vision chest pain difficulty breathing or wheezing nausea or vomiting slurred speech or weakness on one side of the body unexplained weight gain or swelling unusually weak or tired yellowing of eyes or skin Side effects that usually do not require medical attention (report to your doctor or health healthcare administrative assistant if they continue or are bothersome): diarrhea dizziness headache heartburn What may interact with this medicine? Do not take this medicine with any of the following medications: cidofovir diflunisal ketorolac methotrexate pemetrexed triamterene This medicine may also interact with the following medications: alcohol antacids aspirin and aspirin-like medicines cyclosporine digoxin diuretics lithium medicines for diabetes medicines for high blood pressure medicines that affect platelets medicines that treat or prevent blood clots like warfarin NSAIDs, medicines for pain and inflammation, like ibuprofen or naproxen probenecid steroid medicines like prednisone or cortisone What if I miss a dose? If you miss a dose, take it as soon as you can. If it is almost time for your next dose, take only that dose. Do not take double or extra doses. Where should I keep my medicine? Keep out of the reach of children. Store at room temperature between 15 and 30 degrees C (59 and 86 degrees F). Keep container tightly closed. Throw away any unused medicine after the expiration date. What should I tell my health care provider before I take this medicine? They need to know if you have any of these conditions: asthma, especially aspirin sensitive asthma coronary artery bypass graft (CABG) surgery within the past 2 weeks depression drink more than 3 alcohol containing drinks a day heart disease or circulation problems like heart failure or leg edema (fluid retention) high blood pressure kidney disease liver disease Parkinson's disease seizures stomach bleeding or ulcers an unusual or allergic reaction to indomethacin, aspirin, other NSAIDs, other medicines, foods, dyes, or preservatives or trying to get breast-feeding What should I watch for while using this medicine? Tell your doctor or health healthcare administrative assistant if your pain does not get better. Talk to your doctor before taking another medicine for pain. Do not treat yourself. This medicine does not prevent heart attack or stroke. In fact, this medicine may increase the chance of a heart attack or stroke. The chance may increase with longer use of this medicine and in people who have heart disease. If you take aspirin to prevent heart attack or stroke, talk with your doctor or health healthcare administrative assistant. Do not take medicines such as ibuprofen and naproxen with this medicine. Side effects such as stomach upset, nausea, or ulcers may be more likely to occur. Many medicines available without a prescription should not be taken with this medicine. This medicine can cause ulcers and bleeding in the stomach and intestines at any time during treatment. Do not smoke cigarettes or drink alcohol. These increase irritation to your stomach and can make it more susceptible to damage from this medicine. Ulcers and bleeding can happen without warning symptoms and can cause . You may get drowsy or dizzy. Do not drive, use machinery, or do anything that needs mental alertness until you know how this medicine affects you. Do not stand or sit up quickly, especially if you are an older patient. This reduces the risk of dizzy or fainting spells. This medicine can cause you to bleed more easily. Try to avoid damage to your teeth and gums when you brush or floss your teeth. You have been given the following additional information: Hydrocodone Bitartrate, Acetaminophen Oral tablet Indomethacin Oral capsule (Electronically signed by Patrick Leblanc MD 06/15/2016 0:02)
--- NOTE | 2016-06-15 00:03 | ED MED RECONCILIATION SUMMARY ---
Patient: LIAN ROBERTO Medication Reconciliation Report [facility] VisitID: [id number] [address] [place] [address] 40y, F Registration Date/Time: 06/13/2016 Weight: 93.4 kg Height/Length: 64 in. BMI: 35.4 ALLERGIES: Shrimp The patient's Home Medications are listed below: NONE. The source(s) of the original Home Medication information: patient The following Medications were given to the patient in the Emergency Department: Percocet [PO] PO 1 tab, administered: 06/13/2016 2:25:00 PM The following Medications were prescribed to the patient: Hydrocodone/APAP 5mg / 325mg: take 1-2 orally every 4 hours as needed for pain. Dispense twenty-five (25). No refill. -- Patrick Leblanc MD ACTETAZOLEMIDE 500 MG #30 1 PO BID. -- Patrick Leblanc MD Indocin SR 75 mg capsules: take 1 capsule for 14 days. Dispense thirty (30). Substitution is permissible.(1 PO DAILY) -- Patrick Leblanc MD
--- NOTE | 2016-06-15 00:03 | ED MAR SUMMARY ---
..... Medication Administration Record [facility] [address] [place] [address] Patient: LIAN ROBERTO Visit ID: [id number] 40y, F Weight: 93.4 kg Height/Length: 64 in BMI: 35.4 ALLERGIES: Shrimp Given 14:25 06/13/2016 Jessica Machuca R.N. Medication Administered: PERCOCET [PO] (OXYCODONE-ACETAMINOPHEN), Dose: 1 tab 5/325 mg Tablets PO. Medication Ordered: Percocet PO 5/325 mg 1 tablet (HIGH ALERT MEDICATION).
--- NOTE | 2016-06-15 00:03 | ED DISCHARGE INSTRUCTIONS ---
Patient: LIAN ROBERTO General Instructions [facility] VisitID: [id number] [address] [place] [address] 40y, F Registration Date/Time: 06/13/2016 Headache. IDOPATHIC INTRACRANIAL HYPERTENSION. INSTRUCTIONS (CONTINUE TO LOOSE WEIGHT). Prescription Medications: Hydrocodone/APAP 5mg / 325mg: take 1-2 orally every 4 hours as needed for pain. Dispense twenty-five (25). No refill. Indocin SR 75 mg capsules: take 1 capsule for 14 days. Dispense thirty (30). Substitution is permissible. (1 PO DAILY) ACTETAZOLEMIDE 500 MG #30 1 PO BID. Follow-up: Follow up with your doctor in seven days. Reason for referral: FOLLOW UP OF INITIAL TREATMENT Understanding of the discharge instructions verbalized by patient and family. ADDITIONAL INFORMATION Hydrocodone Bitartrate, Acetaminophen Oral tablet What is this medicine? ACETAMINOPHEN; HYDROCODONE (a set a BERTA yarely fen; tone droe KOE done) is a pain reliever. It is used to treat mild to moderate pain. How should I use this medicine? Take this medicine by mouth. Swallow it with a full glass of water. Follow the directions on the prescription label. If the medicine upsets your stomach, take the medicine with food or milk. Do not take more than you are told to take. Talk to your marketing technology coordinator regarding the use of this medicine in children. This medicine is not approved for use in children. What side effects may I notice from receiving this medicine? Side effects that you should report to your doctor or health physician locums urgent care as soon as possible: allergic reactions like skin rash, itching or hives, swelling of the face, lips, or tongue breathing problems confusion feeling faint or lightheaded, falls stomach pain yellowing of the eyes or skin Side effects that usually do not require medical attention (report to your doctor or health physician locums urgent care if they continue or are bothersome): nausea, vomiting stomach upset What may interact with this medicine? alcohol antihistamines isoniazid medicines for depression, anxiety, or psychotic disturbances medicines for sleep muscle relaxants naltrexone narcotic medicines (opiates) for pain phenobarbital ritonavir tramadol What if I miss a dose? If you miss a dose, take it as soon as you can. If it is almost time for your next dose, take only that dose. Do not take double or extra doses. Where should I keep my medicine? Keep out of the reach of children. This medicine can be abused. Keep your medicine in a safe place to protect it from theft. Do not share this medicine with anyone. Selling or giving away this medicine is dangerous and against the law. Store at room temperature between 15 and 30 degrees C (59 and 86 degrees F). Protect from light. Keep container tightly closed. Throw away any unused medicine after the expiration date. Discard unused medicine and used packaging carefully. Pets and children can be harmed if they find used or lost packages. What should I tell my health care provider before I take this medicine? They need to know if you have any of these conditions: brain tumor Crohn's disease, inflammatory bowel disease, or ulcerative colitis drink more than 3 alcohol-containing drinks per day drug abuse or addiction head injury heart or circulation problems kidney disease or problems going to the bathroom liver disease lung disease, asthma, or breathing problems an unusual or allergic reaction to acetaminophen, hydrocodone, other opioid analgesics, other medicines, foods, dyes, or preservatives or trying to get breast-feeding What should I watch for while using this medicine? Tell your doctor or health physician locums urgent care if your pain does not go away, if it gets worse, or if you have new or a different type of pain. You may develop tolerance to the medicine. Tolerance means that you will need a higher dose of the medicine for pain relief. Tolerance is normal and is expected if you take the medicine for a long time. Do not suddenly stop taking your medicine because you may develop a severe reaction. Your body becomes used to the medicine. This does NOT mean you are addicted. Addiction is a behavior related to getting and using a drug for a non-medical reason. If you have pain, you have a medical reason to take pain medicine. Your doctor will tell you how much medicine to take. If your doctor wants you to stop the medicine, the dose will be slowly lowered over time to avoid any side effects. You may get drowsy or dizzy when you first start taking the medicine or change doses. Do not drive, use machinery, or do anything that may be dangerous until you know how the medicine affects you. Stand or sit up slowly. There are different types of narcotic medicines (opiates) for pain. If you take more than one type at the same time, you may have more side effects. Give your health care provider a list of all medicines you use. Your doctor will tell you how much medicine to take. Do not take more medicine than directed. Call emergency for help if you have problems breathing. The medicine will cause constipation. Try to have a bowel movement at least every 2 to 3 days. If you do not have a bowel movement for 3 days, call your doctor or health physician locums urgent care. Too much acetaminophen can be very dangerous. Do not take Tylenol (acetaminophen) or medicines that contain acetaminophen with this medicine. Many non-prescription medicines contain acetaminophen. Always read the labels carefully. Indomethacin Oral capsule What is this medicine? INDOMETHACIN (in marin METH a sin) is a non-steroidal anti-inflammatory drug (NSAID). It is used to reduce swelling and to treat pain. It may be used for painful joint and muscular problems such as arthritis, tendinitis, bursitis, and gout. How should I use this medicine? Take this medicine by mouth with food and with a full glass of water. Follow the directions on the prescription label. Take your medicine at regular intervals. Do not take your medicine more often than directed. Long-term, continuous use may increase the risk of heart attack or stroke. A special MedGuide will be given to you by the pharmacist with each prescription and refill. Be sure to read this information carefully each time. Talk to your marketing technology coordinator regarding the use of this medicine in children. Special care may be needed. While this drug may be prescribed for children as young as 15 years for selected conditions, precautions do apply. Elderly patients over 65 years old may have a stronger reaction and need a smaller dose. What side effects may I notice from receiving this medicine? Side effects that you should report to your doctor or health physician locums urgent care as soon as possible: allergic reactions like skin rash, itching or hives, swelling of the face, lips, or tongue black or bloody stools, blood in the urine or vomit blurred vision chest pain difficulty breathing or wheezing nausea or vomiting slurred speech or weakness on one side of the body unexplained weight gain or swelling unusually weak or tired yellowing of eyes or skin Side effects that usually do not require medical attention (report to your doctor or health physician locums urgent care if they continue or are bothersome): diarrhea dizziness headache heartburn What may interact with this medicine? Do not take this medicine with any of the following medications: cidofovir diflunisal ketorolac methotrexate pemetrexed triamterene This medicine may also interact with the following medications: alcohol antacids aspirin and aspirin-like medicines cyclosporine digoxin diuretics lithium medicines for diabetes medicines for high blood pressure medicines that affect platelets medicines that treat or prevent blood clots like warfarin NSAIDs, medicines for pain and inflammation, like ibuprofen or naproxen probenecid steroid medicines like prednisone or cortisone What if I miss a dose? If you miss a dose, take it as soon as you can. If it is almost time for your next dose, take only that dose. Do not take double or extra doses. Where should I keep my medicine? Keep out of the reach of children. Store at room temperature between 15 and 30 degrees C (59 and 86 degrees F). Keep container tightly closed. Throw away any unused medicine after the expiration date. What should I tell my health care provider before I take this medicine? They need to know if you have any of these conditions: asthma, especially aspirin sensitive asthma coronary artery bypass graft (CABG) surgery within the past 2 weeks depression drink more than 3 alcohol containing drinks a day heart disease or circulation problems like heart failure or leg edema (fluid retention) high blood pressure kidney disease liver disease Parkinson's disease seizures stomach bleeding or ulcers an unusual or allergic reaction to indomethacin, aspirin, other NSAIDs, other medicines, foods, dyes, or preservatives or trying to get breast-feeding What should I watch for while using this medicine? Tell your doctor or health physician locums urgent care if your pain does not get better. Talk to your doctor before taking another medicine for pain. Do not treat yourself. This medicine does not prevent heart attack or stroke. In fact, this medicine may increase the chance of a heart attack or stroke. The chance may increase with longer use of this medicine and in people who have heart disease. If you take aspirin to prevent heart attack or stroke, talk with your doctor or health physician locums urgent care. Do not take medicines such as ibuprofen and naproxen with this medicine. Side effects such as stomach upset, nausea, or ulcers may be more likely to occur. Many medicines available without a prescription should not be taken with this medicine. This medicine can cause ulcers and bleeding in the stomach and intestines at any time during treatment. Do not smoke cigarettes or drink alcohol. These increase irritation to your stomach and can make it more susceptible to damage from this medicine. Ulcers and bleeding can happen without warning symptoms and can cause . You may get drowsy or dizzy. Do not drive, use machinery, or do anything that needs mental alertness until you know how this medicine affects you. Do not stand or sit up quickly, especially if you are an older patient. This reduces the risk of dizzy or fainting spells. This medicine can cause you to bleed more easily. Try to avoid damage to your teeth and gums when you brush or floss your teeth. You have been given the following additional information: Hydrocodone Bitartrate, Acetaminophen Oral tablet Indomethacin Oral capsule (Electronically signed by Patrick Leblanc MD 06/15/2016 0:02)
--- NOTE | 2016-06-15 00:03 | ED MAR SUMMARY ---
..... Medication Administration Record [facility] [address] [place] [address] Patient: LIAN ROBERTO Visit ID: [id number] 40y, F Weight: 93.4 kg Height/Length: 64 in BMI: 35.4 ALLERGIES: Shrimp Given 14:25 06/13/2016 Jsesica Machuca R.N. Medication Administered: PERCOCET [PO] (OXYCODONE-ACETAMINOPHEN), Dose: 1 tab 5/325 mg Tablets PO. Medication Ordered: Percocet PO 5/325 mg 1 tablet (HIGH ALERT MEDICATION).
== END 2016-06-13 15:14 | disposition home or self-care (01) ==
LOC: ED SRH 11:58
DX: R51 Headache (principal); G93.2 Benign intracranial hypertension

== ENCOUNTER 2016-06-29 11:17 | Emergency (ER) | payer OTHER ==
--- NOTE | 2016-06-29 14:10 | ED NURSING NOTES ---
Clinical Report - Nurses [facility] [address] [place] [address] 06/29/2016 11:19 [id number] Triage time 11:41. Acuity: LEVEL 3. Chief Complaint: (Last night after lifting a heavy object she developed a pink spot in her left eye visual field and elevated pressure in both eyes. Also left ear pressure. Several days ago she developed numbness in her upper lip and nose.). 11:47 06/29/16. SEPSIS SCREEN: Sepsis Screen. Negative (no infection suspected/documented). CHIQUIS COMA SCORE: [place] Coma Scale: 15- eyes open spontaneously (4); best verbal response- oriented x 4 (5); best motor response- obeys commands (6). --11:49 Brandon Tompkins R.N. 11:41 06/29/16. BP: 124/73. HR: 70. RR: 16. O2 saturation: 99% on room air. Temp: 98.3 F (oral). Pain level now: 08/30. --11:49 Brandon Tompkins R.N. Weight: 92.5 kg stated. Height/Length: 64 inches Per Patient. BMI: 35. --11:46 Brandon Tompkins R.N. Medications Indomethacin Oral 75 mg, daily. --11:44 Brandon Tompkins R.N. AcetaZOLAMIDE ER Oral 500mg, BID. --11:45 Brandon Tompkins R.N. Allergies Shrimp. --11:44 Brandon Tompkins R.N. History Arrived by private vehicle. Historian: patient. SOCIAL HX: Never smoker. No alcohol use or drug use. ABUSE ASSESSMENT: No report of abuse. --11:49 Brandon Tompkins R.N. PROBLEMS: Headache. Optical hypertension. Abdominal Pain. Nephrolithiasis. Kidney Infection. UTI - Urinary Tract Infection. Lupus. --11:45 Brandon Tompkins R.N. ADDITIONAL SURGERIES: Appendectomy. Cholecystectomy. Hysterectomy. Lumpectomy of breast. --11:45 Brandon Tompkins R.N. Interventions ID band on patient. To treatment room. --11:49 Brandon Tompkins R.N. PHYSICAL ASSESSMENT 11:51 06/29/16. Ambulatory to room. GENERAL / NEURO / PSYCH: Awake. Oriented X 4. Alert. Appears in no acute distress. Speech normal. Mood/affect normal. Moves all extremities. No motor deficit. No sensory deficit. No double vision. HEENT: No facial asymmetry noted. Pupils equal, round and reactive to light. Visual field deficit (pink spot in left eye visual field). RESPIRATORY: Breath sounds within normal limits. Respirations not labored. CVS: Capillary refill less than 2 seconds. SKIN: Skin is warm and dry. --11:51 Brandon Tompkins R.N. 11:53 06/29/16. GENERAL / NEURO / PSYCH: Double vision (CORRECTION: intermittent double vision). --11:54 Brandon Tompkins R.N. NURSING PROGRESS NOTES 11:55. Head of bed elevated. Reassurance given. Two patient identifiers checked. Call light placed in reach. Bed placed in lowest position. Brakes of bed on. Patient ready for evaluation- chart flagged. --11:59 Brandon Tompkins R.N. 11:55 06/29/16. BP: 102/64. HR: 70. RR: 16. O2 saturation: 100% on room air. --14:22 Brandon Tompkins R.N. 12:40 06/29/16. BP: 122/66. HR: 69. RR: 16. O2 saturation: 100% on room air. --14:23 Brandon Tompkins R.N. 13:10 06/29/16. BP: 106/77. HR: 70. RR: 16. O2 saturation: 100% on room air. --14:23 Brandon Tompkins R.N. 13:40 06/29/16. BP: 99/71. HR: 70. RR: 16. O2 saturation: 100% on room air. --14:24 Brandon Tompkins R.N. DISPOSITION / DISCHARGE 14:29 06/29/16. Departure time: 1426. Condition at departure: unchanged and stable. No learning barriers present. Discharge instructions provided and reviewed with the patient. Reviewed medication(s). Patient verbalized understanding. Written instructions provided in French. The patient was discharged by the physician. She was discharged home and accompanied by family. She left the Emergency Department ambulatory and via private vehicle. Patient driving. --14:29 Brandon Tompkins R.N. 14:28 06/29/16. BP: 98/64. HR: 69. RR: 16. O2 saturation: 100% on room air. Temp: 98.3 F (oral). Pain level now: 08/30. --14:29 Brandon Tompkins R.N. Locked/Released at 06/29/2016 14:40 by Brandon Tompkins R.N.
--- NOTE | 2016-06-29 14:10 | ED NURSING NOTES ---
Clinical Report - Nurses [facility] [address] [place] [address] 06/29/2016 11:19 [id number] TRI[facility] Triage time 11:41. Acuity: LEVEL 3. Chief Complaint: (Last night after lifting a heavy object she developed a pink spot in her left eye visual field and elevated pressure in both eyes. Also left ear pressure. Several days ago she developed numbness in her upper lip and nose.). 11:47 06/29/16. SEPSIS SCREEN: Sepsis Screen. Negative (no infection suspected/documented). CHIQUIS COMA SCORE: [place] Coma Scale: 15- eyes open spontaneously (4); best verbal response- oriented x 4 (5); best motor response- obeys commands (6). --11:49 Brandon Tompkins R.N. 11:41 06/29/16. BP: 124/73. HR: 70. RR: 16. O2 saturation: 99% on room air. Temp: 98.3 F (oral). Pain level now: 08/30. --11:49 Brandon oTmpkins R.N. Weight: 92.5 kg stated. Height/Length: 64 inches Per Patient. BMI: 35. --11:46 Brandon Tompkins R.N. Medications Indomethacin Oral 75 mg, daily. --11:44 Brandon Tompkins R.N. AcetaZOLAMIDE ER Oral 500mg, BID. --11:45 Brandon Tompkins R.N. Allergies Shrimp. --11:44 Brandon Tompkins R.N. History Arrived by private vehicle. Historian: patient. SOCIAL HX: Never smoker. No alcohol use or drug use. ABUSE ASSESSMENT: No report of abuse. --11:49 Brandon Tompkins R.N. PROBLEMS: Headache. Optical hypertension. Abdominal Pain. Nephrolithiasis. Kidney Infection. UTI - Urinary Tract Infection. Lupus. --11:45 Brandon Tompkins R.N. ADDITIONAL SURGERIES: Appendectomy. Cholecystectomy. Hysterectomy. Lumpectomy of breast. --11:45 Brandon Tompkins R.N. Interventions ID band on patient. To treatment room. --11:49 Brandon Tompkins R.N. PHYSICAL ASSESSMENT 11:51 06/29/16. Ambulatory to room. GENERAL / NEURO / PSYCH: Awake. Oriented X 4. Alert. Appears in no acute distress. Speech normal. Mood/affect normal. Moves all extremities. No motor deficit. No sensory deficit. No double vision. HEENT: No facial asymmetry noted. Pupils equal, round and reactive to light. Visual field deficit (pink spot in left eye visual field). RESPIRATORY: Breath sounds within normal limits. Respirations not labored. CVS: Capillary refill less than 2 seconds. SKIN: Skin is warm and dry. --11:51 Brandon Tompkins R.N. 11:53 06/29/16. GENERAL / NEURO / PSYCH: Double vision (CORRECTION: intermittent double vision). --11:54 Brandon Tompkins R.N. NURSING PROGRESS NOTES 11:55. Head of bed elevated. Reassurance given. Two patient identifiers checked. Call light placed in reach. Bed placed in lowest position. Brakes of bed on. Patient ready for evaluation- chart flagged. --11:59 Brandon Tompkins R.N. 11:55 06/29/16. BP: 102/64. HR: 70. RR: 16. O2 saturation: 100% on room air. --14:22 Brandon Tompkins R.N. 12:40 06/29/16. BP: 122/66. HR: 69. RR: 16. O2 saturation: 100% on room air. --14:23 Brandon Tompkins R.N. 13:10 06/29/16. BP: 106/77. HR: 70. RR: 16. O2 saturation: 100% on room air. --14:23 Brandon Tompkins R.N. 13:40 06/29/16. BP: 99/71. HR: 70. RR: 16. O2 saturation: 100% on room air. --14:24 Brandon Tompkins R.N. DISPOSITION / DISCHARGE 14:29 06/29/16. Departure time: 1426. Condition at departure: unchanged and stable. No learning barriers present. Discharge instructions provided and reviewed with the patient. Reviewed medication(s). Patient verbalized understanding. Written instructions provided in Persian. The patient was discharged by the physician. She was discharged home and accompanied by family. She left the Emergency Department ambulatory and via private vehicle. Patient driving. --14:29 Brandon Tompkins R.N. 14:28 06/29/16. BP: 98/64. HR: 69. RR: 16. O2 saturation: 100% on room air. Temp: 98.3 F (oral). Pain level now: 08/30. --14:29 Brandon Tompkins R.N. Locked/Released at 06/29/2016 14:40 by Brandon Tompkins R.N.
--- NOTE | 2016-06-29 14:10 | ED CLINICAL REPORT ---
Clinical Report - Physicians/Mid Levels [facility] [address] [place] [address] 06/29/2016 11:19 Patient: LIAN ROBERTO *This is a preliminary document and is subject to change Time Seen: 12:42; initial patient contact. Leroy Ray Dr.
--- NOTE | 2016-06-29 14:10 | ED CLINICAL REPORT ---
Clinical Report - Physicians/Mid Levels [facility] [address] [place] [address] 06/29/2016 11:19 Patient: LIAN ROBERTO *This is a preliminary document and is subject to change Time Seen: 12:42; initial patient contact. Leroy Ray Dr.
--- NOTE | 2016-07-01 01:17 | ED MAR SUMMARY ---
..... Medication Administration Record [facility] [address] [place], [place] [id number] Patient: LIAN ROBERTO Visit ID: [id number] 40y, F Weight: 92.5 kg Height/Length: 64 in BMI: 35 ALLERGIES: Shrimp
--- NOTE | 2016-07-01 01:17 | ED DISCHARGE INSTRUCTIONS ---
Patient: LIAN ROBERTO General Instructions [facility] VisitID: [id number] [address] [place] [address] 40y, F Registration Date/Time: 06/29/2016 Chronic, poorly controlled headache. (Idiopathic Intracranial Hypertension). INSTRUCTIONS Your Current Medications: STOP TAKING THE FOLLOWING MEDICATIONS: AcetaZOLAMIDE ER Oral : 500mg BID. Prescription Medications: Acetazolamide tab 250 mg 3 tabs PO BID Disp # 90 No refills. Follow-up: Follow up with your doctor as scheduled. Screening today revealed the patient's blood pressure to be in the pre-hypertensive range. The patient should follow up with a primary care provider for blood pressure management. (Electronically signed by Leroy Ray Dr. 07/01/2016 1:16)
--- NOTE | 2016-07-01 01:17 | ED MAR SUMMARY ---
..... Medication Administration Record [facility] [address] [place], [place] [id number] Patient: LIAN ROBERTO Visit ID: [id number] 40y, F Weight: 92.5 kg Height/Length: 64 in BMI: 35 ALLERGIES: Shrimp
--- NOTE | 2016-07-01 01:17 | ED MED RECONCILIATION SUMMARY ---
Patient: LIAN ROBERTO Medication Reconciliation Report [facility] VisitID: [id number] [address] [place] [address] 40y, F Registration Date/Time: 06/29/2016 Weight: 92.5 kg Height/Length: 64 in. BMI: 35.0 ALLERGIES: Shrimp The patient's Home Medications are listed below: STOP TAKING THE FOLLOWING MEDICATIONS: AcetaZOLAMIDE ER Oral 500mg, BID THE FOLLOWING MEDICATIONS NEED TO BE RECONCILED: Indomethacin Oral 75 mg, daily The source(s) of the original Home Medication information: Not obtained. The following Medications were given to the patient in the Emergency Department: None. The following Medications were prescribed to the patient: Acetazolamide tab 250 mg3 tabs PO BIDDisp # 90No refills. -- Leroy Ray Dr.
--- NOTE | 2016-07-01 01:17 | ED MED RECONCILIATION SUMMARY ---
Patient: LIAN ROBERTO Medication Reconciliation Report [facility] VisitID: [id number] [address] [place] [address] 40y, F Registration Date/Time: 06/29/2016 Weight: 92.5 kg Height/Length: 64 in. BMI: 35.0 ALLERGIES: Shrimp The patient's Home Medications are listed below: STOP TAKING THE FOLLOWING MEDICATIONS: AcetaZOLAMIDE ER Oral 500mg, BID THE FOLLOWING MEDICATIONS NEED TO BE RECONCILED: Indomethacin Oral 75 mg, daily The source(s) of the original Home Medication information: Not obtained. The following Medications were given to the patient in the Emergency Department: None. The following Medications were prescribed to the patient: Acetazolamide tab 250 mg3 tabs PO BIDDisp # 90No refills. -- Leroy Ray Dr.
--- NOTE | 2016-07-01 01:17 | ED DISCHARGE INSTRUCTIONS ---
Patient: LIAN ROBERTO General Instructions [facility] VisitID: [id number] [address] [place] [address] 40y, F Registration Date/Time: 06/29/2016 Chronic, poorly controlled headache. (Idiopathic Intracranial Hypertension). INSTRUCTIONS Your Current Medications: STOP TAKING THE FOLLOWING MEDICATIONS: AcetaZOLAMIDE ER Oral : 500mg BID. Prescription Medications: Acetazolamide tab 250 mg 3 tabs PO BID Disp # 90 No refills. Follow-up: Follow up with your doctor as scheduled. Screening today revealed the patient's blood pressure to be in the pre-hypertensive range. The patient should follow up with a primary care provider for blood pressure management. (Electronically signed by Leroy Ray Dr. 07/01/2016 1:16)
== END 2016-06-29 14:26 | disposition home or self-care (01) ==
LOC: ED SRH 11:17
DX: G93.2 Benign intracranial hypertension (principal); R51 Headache; M32.9 Systemic lupus erythematosus, unspecified; Z79.899 Other long term (current) drug therapy; Z91.013 Allergy to seafood